=== PATIENT | female | born 1960 | race Caucasian/White ===

== ENCOUNTER 2017-02-12 16:56 | Emergency (ER) | payer OTHER ==
[~2017-02-12] VITALS: Ht 154.9 cm; Wt 77.7 kg
[~2017-02-12 16:56] MED LIST: ATARAX,VISTARIL25 MG PO; AUGMENTIN875 MG PO; BENICAR; BENICAR40 MG PO; CELEBREX100 MG PO; DIFLUCAN150 MG PO; KENALOG IN ORABA5 GM DT; NAPROSYN; NAPROXEN500 MG PO; NORCO 5/3251 TABLET PO; PEN-VEE K,VEET500 MG PO; PREDNISONE10 MG PO; SUBOXONE 8 MG-1 EAC2 SL; ULTRAM50 MG PO; VALIUM5 MG PO
[2017-02-12 17:43] LABS: HEMATOCRIT 40.2 % (36.0-46.0); MCH 31.8 PG (29.0-34.0); MCHC 33.1 G/DL (30.0-36.0); MCV 96.2 FL (83-99); MEAN PLAT.VOLUME 9.7 uM^3 (9.5-12.4); PLATELET COUNT 344 K/uL (156-360); RBC DIS.WIDTH-CV 12.1 % (11.8-14.6); RED BLOOD COUNT 4.18 M/uL (3.80-5.20); WHITE BLOOD COUNT 4.7 K/uL (4.1-10.2)
[2017-02-12 17:53] LABS: CHLORIDE 107 mEq/L (99-109); POTASSIUM 4.2 mEq/L (3.7-5.4); SODIUM 141 mEq/L (136-147)
[2017-02-12 17:54] LABS: GLUCOSE 86 mg/dL (70-99)
[2017-02-12 17:56] LABS: ANION GAP 7 MEQ/L (2-14)
[2017-02-12 17:58] LABS: GFR ESTIMATE (CALCULATED) 54 mL/min/
[2017-02-12 17:59] LABS: UREA NITROGEN (BUN) 14 mg/dL (9-23)
[2017-02-12] MEDS ORDERED: PREDNISONE20 MG PO (18:51)
[2017-02-12] MEDS ORDERED: LEVAQUIN500 MG PO (18:51)
[2017-02-12 19:32] VITALS: BP 181/102
== END 2017-02-12 19:32 | disposition home or self-care (01) ==
LOC: EME 16:56
DX: J40 Bronchitis, not specified as acute or chronic (principal); I10 Essential (primary) hypertension
CPT/HCPCS: 71020; 80048; 85027; 99281; 99284; J7512

== ENCOUNTER 2017-03-06 14:57 | Emergency (ER) | payer OTHER ==
[~2017-03-06] VITALS: Ht 154.9 cm; Wt 75.1 kg
[~2017-03-06 14:57] MED LIST changes: +LEVAQUIN500 MG PO; +PREDNISONE20 MG PO
[2017-03-06] MEDS ORDERED: MUCUS-ER MAX1200 MG PO (16:53)
[2017-03-06] MEDS ORDERED: TESSALON PERLE100 MG PO (16:56)
[2017-03-06 17:05] VITALS: BP 129/104
[2017-03-06 18:15] LABS: HEMATOCRIT 44.2 % (36.0-46.0); MCH 31.9 PG (29.0-34.0); MCHC 34.2 G/DL (30.0-36.0); MCV 93.4 FL (83-99); MEAN PLAT.VOLUME 9.6 uM^3 (9.5-12.4); PLATELET COUNT 368 K/uL (156-360); RBC DIS.WIDTH-CV 12.2 % (11.8-14.6); RBC DIS.WIDTH-SD 42.3 % (39-53); RED BLOOD COUNT 4.73 M/uL (3.80-5.20); WHITE BLOOD COUNT 4.6 K/uL (4.1-10.2)
[2017-03-06 18:27] LABS: CHLORIDE 106 mEq/L (99-109); POTASSIUM 4.3 mEq/L (3.7-5.4); SODIUM 142 mEq/L (136-147)
[2017-03-06 18:29] LABS: D-DIMER ELISA 0.26 mg/L FEU (< 0.57); GLUCOSE 123 mg/dL (70-99)
[2017-03-06 18:30] LABS: ANION GAP 11 MEQ/L (2-14)
[2017-03-06 18:33] LABS: GFR ESTIMATE (CALCULATED) > 59 mL/min/; UREA NITROGEN (BUN) 8 mg/dL (9-23)
== END 2017-03-06 19:14 | disposition home or self-care (01) ==
LOC: EME 14:57
PROVIDERS: Emergency Medicine
DX: I10 Essential (primary) hypertension (principal); R05 Cough
CPT/HCPCS: 70360; 71020; 80048; 85027; 85379; 99281; 99283

== ENCOUNTER 2017-05-15 12:49 | Emergency (ER) | payer OTHER ==
[~2017-05-15] VITALS: Ht 180.3 cm; Wt 75.3 kg
[~2017-05-15 12:49] MED LIST changes: +MUCUS-ER MAX1200 MG PO; +TESSALON PERLE100 MG PO
[2017-05-15 12:51] VITALS: BP 149/88
[2017-05-15] MEDS ORDERED: MEDROL DOSEPAK4 MG PO (13:54)
[2017-05-15] MEDS ORDERED: NORCO 5/3251 TABLET PO (13:54)
== END 2017-05-15 14:46 | disposition home or self-care (01) ==
LOC: EME 12:49
DX: M25.461 Effusion, right knee (principal); M25.561 Pain in right knee; M76.31 Iliotibial band syndrome, right leg
CPT/HCPCS: 73564; 99281; 99283

== ENCOUNTER → 2018-05-20 | Outpatient (CLI) | payer OTHER ==
[~2018-05-20] MED LIST changes: +MEDROL DOSEPAK4 MG PO
== END | disposition home or self-care (01) ==
LOC: RAD 14:04
DX: M50.321 Other cervical disc degeneration at C4-C5 level (principal); M46.92 Unspecified inflammatory spondylopathy, cervical region; S09.92XA Unspecified injury of nose, initial encounter; M54.5 Low back pain; G89.29 Other chronic pain
CPT/HCPCS: 70150; 72050; 72110

== ENCOUNTER 2018-07-06 14:07 | Emergency (ER) | payer OTHER ==
[~2018-07-06] VITALS: Ht 154.9 cm; Wt 70.0 kg
[2018-07-06] MEDS ORDERED: KEFLEX500 MG PO (16:06)
[2018-07-06] MEDS ORDERED: TRAMADOL HCL50 MG PO (16:06)
[2018-07-06 16:27] VITALS: BP 119/89
== END 2018-07-06 16:46 | disposition home or self-care (01) ==
LOC: EME 14:07
DX: L03.211 Cellulitis of face (principal); M54.12 Radiculopathy, cervical region; I27.20 Pulmonary hypertension, unspecified
CPT/HCPCS: 99281; 99284